=== PATIENT | male | born 1965 | race Caucasian/White ===

== ENCOUNTER 2019-09-02 20:29 | Outpatient (REF) | payer BC, SELFPAY ==
[2019-09-02 21:07] LABS: Abs Immature Grans 0.01 k/cumm (0.0-0.09); Absolute Basophil Count 0.04 k/cumm (0.0-0.2); Absolute Eosinophil Count 0.03 k/cumm (0.0-0.7); Absolute Lymphocyte Count 1.06 k/cumm (1.2-3.4); Absolute Monocyte Count 0.73 k/cumm (0.11-0.7); Absolute Neutrophil Count 5.23 k/cumm (1.2-6.7); Basophils % 0.6; Eosinophils % 0.4; HCT 44.9 % (40.0-50.0); HGB 14.9 g/dL (13.5-17.5); Immature Grans % 0.1 %; Lymphocytes % 14.9; Mean Corp. HGB Concentration 33.2 g/dL (32.0-36.0); Mean Corpuscular Hemoglobin 31.2 pg (27.0-33.0); Mean Corpuscular Volume 93.9 fL (80-95); Monocytes % 10.3; Neutrophils % 73.7; Platelet Count 339 x1000/uL (130-400); RBC 4.78 m/cumm (4.50-6.00); RBC Distribution Width 13.3 % (11.8-14.1)
[2019-09-02 21:28] LABS: Hemoglobin A1C 5.3 % (3.8-5.6)
[2019-09-02 21:38] LABS: ALT 30 U/L (16-63); AST 35 U/L (15-37); Albumin 4.1 g/dL (3.4-5.0); Alkaline Phosphatase 113 U/L (46-116); Anion Gap 8.7 mmol/L (3-11); BUN 14 mg/dL (7-18); Bilirubin, Total 0.4 mg/dL (0.2-1.0); CO2 28.3 mmol/L (21.0-32.0); CREATININE 1.15 mg/dL (0.70-1.30); Calcium 8.9 mg/dL (8.5-10.1); Chloride 101 mmol/L (98-107); Glucose 110 mg/dL (74-106); Potassium 4.9 mmol/L (3.5-5.1); Sodium 138 mmol/L (136-145); TSH 1.21 uIU/mL (0.36-3.74); Total Protein 8.1 g/dL (6.4-8.2); Uric Acid 8.7 mg/dL (3.5-7.2)
[2019-09-02 22:03] LABS: Calculated LDL 78 mg/dL (<100); Cholesterol 188 mg/dL (<200); HDL Cholesterol 104 mg/dL (40-60); Triglyceride 34 mg/dL (<150)
[2019-09-04 08:55] LABS: PSA, Screening 1.1 ng/mL (0.0-3.5)
== END 2019-09-02 20:49 ==
LOC: LBN 20:29
PROVIDERS: PCP Family Medicine; Visit Provider Family Medicine
DX: Z80.42 Family history of malignant neoplasm of prostate (principal); M10.9 Gout, unspecified; R73.01 Impaired fasting glucose; Z00.00 Encounter for general adult medical examination without abnormal findings; Z12.5 Encounter for screening for malignant neoplasm of prostate
CPT/HCPCS: 80053; 80061; 84153; 83036; 84443; 84550; 85025

== ENCOUNTER 2019-09-30 08:09 | Outpatient (CLI) | payer BC, SELFPAY ==
--- NOTE | 2019-09-30 09:00 | ETT_ITS ---
APPROVED REPORT Exam: Exercise Treadmill Patient Location: Out-Patient Room/Bed: Stress Nurse: Veena Skelton RN BMI: 32.63 Baseline Rhythm: Sinus Rhythm Indications: fatigue Medical History Medical History: Fatigue, Obesity , HTN, Hyperlipidemia Cardiac Medications: Valsartan/ Diovan Allergies: No known drug allergies Cardiac Risk Factors: HTN, Hyperlipidemia, FHX of CAD Pretest Chest Pain Characteristics: No chest pain Exercise History: Sedentary Lung Sounds: Clear to auscultation Heart Sounds: Regular Stress Test Details Test: Exercise stress testing was performed using a Antoni protocol. Rest Stress HR Resting HR Supine: 91 bpm Max Heart Rate (APMHR): 165 bpm Resting HR Standin bpm Target HR (85% APMHR): 140 bpm Max HR Achieved: 171 bpm % of APMHR: 103 Recovery HR: 104 bpm HR response to stress: Normal HR response to stress BP Resting BP Supine: 168/86 mmHg Resting BP Standin/84 mmHg Max BP: 194/68 mmHg Recovery BP: 174/74 mmHg BP response to stress: Normal blood pressure response to stress. ECG Resting ECG: Sinus Rhythm Ectopy: RARE PVC'S Stress ECG: Sinus Tachycardia ST Change: Upsloping ST depression Maximum ST Deviation: 1.9 mm Arrhythmia: VPC's Recovery ECG: Clear, SINUS TACHYCARDIA Recovery ST Change: Normal Clinical Reason for Termination: Target HR Achieved Stress Symptoms: General Fatigue Exercise duration: 9 min12 sec Highest Stage Reached: Stage 4: 4.2 mph at 16% grade. Exercise capacity: 10.46 METs Functional Capacity: Average Capacity Stress ECG Conclusion 1. Patient exercised on the Antoni protocol and completed a workload of 10.46 METS limited by fatigue. He achieved greater than 100% of predicted heart rate for age 2. Normal heart rate and blood pressure response to exercise 3. The resting electrocardiogram was normal. At peak exercise there was approximately [address] dep ression noted in the inferior and anterolateral leads, consistent with myocardial ischemia 4. Sporadic PVCs were noted 5. Mora treadmill score is -1, which is medium risk. Expected 95% survival at 5 years
== END 2019-09-30 08:29 ==
PROVIDERS: PCP Family Medicine; Visit Provider Family Medicine
DX: I10 Essential (primary) hypertension (principal); R53.83 Other fatigue; Z82.49 Family history of ischemic heart disease and other diseases of the circulatory system; E66.9 Obesity, unspecified; E78.5 Hyperlipidemia, unspecified
CPT/HCPCS: 93017

== ENCOUNTER 2019-10-08 00:14 | Outpatient (CLI) | payer BC, SELFPAY ==
--- NOTE | 2019-10-08 07:15 | DI.NM_ITS ---
APPROVED REPORT Exam: Exercise Treadmill Patient Location: Out-Patient Room/Bed: Stress Nurse: Teresa Woods RN BMI: 32.77 Baseline Rhythm: Sinus Rhythm Indications: Abnormal EKG. HTN. Medical History Medical History: HTN, Hyperlipidemia Cardiac Medications: Valsartan Allergies: No known drug allergies Cardiac Risk Factors: HTN, Hyperlipidemia Exercise History: Physically active Lung Sounds: Clear to auscultation Heart Sounds: Regular Stress Test Details Test: Exercise stress testing was performed using a Antoni protocol. Rest Isotope: Tc-99m Sestamibi. Dose: 12.5 Date: 10/08/2019 Injection Time: 1040 Stress Isotope: Tc-99m Sestamibi. Dose: 37.6 Date: 10/08/2019 Injection Time: 1245 HR Resting HR Supine: 72 bpm Max Heart Rate (APMHR): 165 bpm Resting HR Standin bpm Target HR (85% APMHR): 140 bpm Max HR Achieved: 152 bpm % of APMHR: 92 Recovery HR: 91 bpm HR response to stress: Normal HR response to stress BP Resting BP Supine: 162/100 mmHg Resting BP Standin/88 mmHg Max BP: 200/76 mmHg Recovery BP: 174/90 mmHg BP response to stress: Normal blood pressure response to stress. ECG Resting ECG: Sinus Rhythm Stress ECG: Sinus Tachycardia ST Change: No significant ST segment changes Recovery ECG: Sinus Rhythm Recovery ST Change: No significant ST segment changes Recovery Arrhythmia: None Clinical Reason for Termination: Fatigue Stress Symptoms: General Fatigue Exercise duration: 09 min03 sec Highest Stage Reached: Stage 3: 3.4 mph at 14% grade. Exercise capacity: 10.21 METs Functional Capacity: Average Capacity Stress ECG Conclusion 1. The patient exercised for 9 minutes (10 METS). 2. There were no symptoms suggestive of ischemia. 3. Patient no evidence of ischemia on the ECG portion of the exam. Stress Test Summary STAGE Time (mins) Speed (mph) Grade (%) HR BP SYMPTOMS METS Supine 72 162/100 Standing 81 150/88 1 3 1.7 10 108 164/82 4.6 2 6 2.5 12 126 174/80 7 3 9 3.4 14 152 194/78 10.2 1 min recovery 126 200/76 3 min recovery 103 188/80 6 min recovery 97 172/94 9 min recovery 91 174/90 MPI Conclusion Patient's ejection fraction was 61% with stress. There were no wall motion abnormalities. There was no evidence of ischemia on the imaging portion of the exam. This represents a normal SPECT stress test. Radiologist Interpretation Radiologist agrees with Delivery Rn's Interpretation. Radiologist Interpretation by: Kaiden Costello MD Interpretation Date/Time: 10/09/2019 11:26:11
== END 2019-10-08 00:34 ==
PROVIDERS: PCP Family Medicine; Visit Provider Family Medicine
DX: I10 Essential (primary) hypertension (principal); R94.31 Abnormal electrocardiogram [ECG] [EKG]; Z82.49 Family history of ischemic heart disease and other diseases of the circulatory system; E78.5 Hyperlipidemia, unspecified
CPT/HCPCS: 78452; 93017

== ENCOUNTER 2019-11-08 03:56 | Outpatient (CLI) | payer BC, SELFPAY ==
[2019-11-10 18:05] LABS: Patient Race White; SARS-CoV-2 RNA Undetected (Undetected); SARS-CoV-2 Specimen Source Nasopharynx
== END 2019-11-08 04:16 ==
PROVIDERS: PCP Family Medicine; Visit Provider Family Medicine
DX: Z11.59 Encounter for screening for other viral diseases (principal)
CPT/HCPCS: U0003

== ENCOUNTER 2021-04-28 01:53 | Outpatient (CLI) | payer BC, SELFPAY ==
[2021-04-28 12:29] LABS: BUN 18 mg/dL (7-18); CREATININE 0.9 mg/dL (0.70-1.30); Calcium 9.3 mg/dL (8.5-10.1); Chloride 101 mmol/L (98-107); Glucose 98 mg/dL (74-106); Potassium 5.3 mmol/L (3.5-5.1); Sodium 138 mmol/L (136-145); Uric Acid 7.2 mg/dL (3.5-7.2)
== END 2021-04-28 01:54 | disposition home or self-care (01) ==
LOC: LBO 01:54
PROVIDERS: PCP Family Medicine; Visit Provider Family Medicine
DX: E79.0 Hyperuricemia without signs of inflammatory arthritis and tophaceous disease (principal); I10 Essential (primary) hypertension
CPT/HCPCS: 36415; 80048; 84550

== ENCOUNTER 2022-03-01 03:57 | Outpatient (CLI) | payer BC, SELFPAY ==
[2022-03-01 15:11] LABS: Anion Gap 7.3 mmol/L (3-11); BUN 9 mg/dL (7-18); CO2 29.7 mmol/L (21.0-32.0); CREATININE 0.7 mg/dL (0.70-1.30); Calcium 8.8 mg/dL (8.5-10.1); Chloride 98 mmol/L (98-107); Glucose 97 mg/dL (74-106); Potassium 4.2 mmol/L (3.5-5.1); Sodium 135 mmol/L (136-145); Uric Acid 6.9 mg/dL (3.5-7.2)
[2022-03-01 15:40] LABS: Calculated LDL 87 mg/dL (<100); Cholesterol 223 mg/dL (<200); HDL Cholesterol 114 mg/dL (40-60); Triglyceride 110 mg/dL (<150)
[2022-03-01 22:53] LABS: PSA, Screening 0.9 ng/mL (<=3.5)
== END 2022-03-01 03:58 | disposition home or self-care (01) ==
LOC: LBO 03:57
PROVIDERS: PCP Family Medicine; Visit Provider Family Medicine
DX: I10 Essential (primary) hypertension (principal); Z12.5 Encounter for screening for malignant neoplasm of prostate; Z13.6 Encounter for screening for cardiovascular disorders; E79.0 Hyperuricemia without signs of inflammatory arthritis and tophaceous disease; M1A.9XX0 Chronic gout, unspecified, without tophus (tophi)
CPT/HCPCS: 36415; 80048; 80061; 84153; 84550

== ENCOUNTER 2022-03-23 06:12 | Day surgery (SDC) | payer BC, SELFPAY ==
--- NOTE | 2022-03-22 20:38 | W.COLOREPORT ---
Date of service: 03/23/22 Time of Service: 08:13 Colonoscopy Report Date of procedure: 03/23/22 Pre-op diagnosis general: Screening colonoscopy; family history--mother Procedure: 1. Colonoscopy 2. polypectomy by jumbo forceps Surgeon: Abdirahman Dacosta Anesthesia Type: MAC Estimated blood loss (mL): 1 Pathology: other (1. mid-rectal polyp @ 15cm) Disposition: same day Indications: Screening for colorectal cancer Prep: Miralax/Dulcolax Retraction Time: >12 min Procedure Description: After informed consent was obtained, the patient was taken to the procedure room and placed in a left decubitus position. Monitors were applied and a time out was done. The patient's name, date of , procedure, allergies to medications, and metal in their body were reviewed. The patient was then sedated. Once sedated and comfortable, a digital rectal exam was done. External exam was normal. Internal exam revealed normal sphincter tone, and no palpable masses or gross blood. The colonoscope was then introduced and advanced to the cecum under direct visualization without difficulty. The ileocecal valve and appendiceal orifice were visualized. The prep was good.? ?The scope was then slowly withdrawn over 12 minutes in a circumferential manner to the rectum. In doing so, one 3mm polyp was encountered in the mid-rectum.? There? was no diverticulosis noted. The mucosa is pink and healthy.? In the rectum, the scope was retroflexed, and no internal hemorrhoids were noted.? The scope was straightened and withdrawn from the anus. The patient tolerated the procedure well, and there were no immediate complications.? The patient was taken to the Day Surgery Unit recovery?area in good condition. Follow up: 5 years, await pathology
--- NOTE | 2022-03-22 20:40 | W.PM.DSUDISC ---
Date of service: 03/23/22 Time of Service: 08:18 Discharge Plan Disposition Patient Disposition: Home Condition: Stable Discharge Details Reason For Visit: Screening for colorectal cancer Attending Provider: Abdirahman Dacosta Primary Care Provider: Teresa Sims Home Meds and New Rx's Prescriptions: No Action bisacodyl [Dulcolax (bisacodyl)] 5 mg tablet,delayed release (DR/EC) 5 mg PO ONCE Qty: 4 0RF Rx Instructions: Take according to provider's instructions for colonoscopy prep. polyethylene glycol 3350 17 gram/dose powder 17 g PO ONCE Qty: 238 0RF Rx Instructions: To be taken as directed by prescriber's office for colonoscopy prep. amlodipine 5 mg tablet 5 mg PO DAILY Qty: 90 3RF indomethacin 25 mg capsule 25 mg PO TID PRN (Reason: gout) Qty: 30 5RF Discharge Instructions Instructions: Colonoscopy (DC), Colorectal Polyps (DC) Activity:: Activity as Tolerated Diet:: As Tolerated
[2022-03-23 06:15] VITALS: BP 133/79; PULSE 71; RESP 18; TEMP 36.7; O2SAT 96
[2022-03-23] MEDS: Lactated Ringers 1,000 ML 80 ML IV (06:41)
--- NOTE | 2022-03-23 06:45 | W.ANESPRE ---
General Info Date of Service Date Performed: 03/23/22 Height: 5 ft 11 in Weight: 101.3 kg Body Mass Index (BMI): 31.1 Surgical Procedure: Operation Date: 03/23/22 07:35 Proposed Procedure Side Surgeon rachelle Dacosta MD Meds Allergies and Home Medications Allergies Allergy/AdvReac Type Severity Reaction Status Date / Time shellfish derived Allergy Severe Verified 03/23/22 06:27 Home Medication Medication Instructions Recorded indomethacin 25 mg capsule 25 mg PO TID PRN gout #30 tab-caps 10/13/21 amlodipine 5 mg tablet 5 mg PO DAILY #90 tabs 02/25/22 bisacodyl 5 mg tablet,delayed 5 mg PO ONCE #4 tabs 03/10/22 release (Dulcolax (bisacodyl)) polyethylene glycol 3350 17 17 g PO ONCE #238 grams 03/10/22 gram/dose oral powder Current Visit Medications: Current Medications Generic Name Dose Route Start Last Admin Trade Name Freq PRN Reason Stop Dose Admin Ringer's Solution 1,000 mls @ 80 mls/hr 03/23/22 06:00 03/23/22 06:41 IV 04/21/22 23:59 80 mls/hr INFUSION WALT Administration IV Miscellaneous Supplies 1 each 03/23/22 06:00 Iv Access IV 04/21/22 23:59 DIRECTED WALT Sodium Chloride 0 ml 03/23/22 06:00 Normal Saline Flush 10 Ml Syr IV 04/21/22 23:59 PRN PRN Sodium Chloride 0 ml 03/23/22 06:00 Normal Saline 10 Ml Vial IJ 04/21/22 23:59 DIRECTED PRN Sterile Water 0 ml 03/23/22 06:00 Water,Injection,Sterile 10 Ml Vial IJ 04/21/22 23:59 DIRECTED PRN PFSH Active Problems Active Problems: Problem Status Onset Code Screening for colon cancer Z12.11 Continuous chewing tobacco dependence F17.220 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 HTN (hypertension) I10 Hyperuricemia E79.0 Medical History Medical History Family history of [place] (myocardial infarction) Family history of prostate cancer in father Gout gets episodes once yearly Tobacco Smoking/Tobacco Use Status: Current every day Tobacco Type: smokeless tobacco Smokeless tobacco user: snuff Passive smoking exposure: Yes Second hand exposure: No Counseling given: provider counseling Alcohol Alcohol Intake: current Alcohol intake frequency: 3 or more drinks per day Alcohol type: beer Substance Use Substance use: Never Substance use type: does not use Vital Signs and Lab Results Vital Signs Most Recent Vital Signs in EMR: Most Recent Vital Signs Temp Pulse Resp BP Pulse Ox 36.7 C 71 18 133/79 96 03/23/22 06:15 03/23/22 06:15 03/23/22 06:15 03/23/22 06:15 03/23/22 06:15 Lab Results Blood Type / Crossmatch: No Data to Display Complete Blood Count: No Data to Display Complete Metabolic Panel: Sodium 135 mmol/L (136-145) L 03/01/22 14:08 Potassium 4.2 mmol/L (3.5-5.1) 03/01/22 14:08 Chloride 98 mmol/L (98-107) 03/01/22 14:08 Carbon Dioxide 29.7 mmol/L (21.0-32.0) 03/01/22 14:08 BUN 9 mg/dL (7-18) 03/01/22 14:08 Creatinine 0.7 mg/dL (0.70-1.30) 03/01/22 14:08 Est GFR (CKD-EPI 2020) 106.80 (mL/min/1.73m2) 03/01/22 14:08 Calcium 8.8 mg/dL (8.5-10.1) 03/01/22 14:08 Glucose 97 mg/dL (74-106) 03/01/22 14:08 Liver Function Panel: No Data to Display Coagulation Panel: No Data to Display Cardiac Panel: No Data to Display Arterial Blood Gas: No Data to Display Venous Blood Gas: No Data to Display Pancreas Panel: No Data to Display Thyroid Panel: No Data to Display Infectious Disease: No Data to Display Blood Cultures: No Data to Display Toxicology Panel: No Data to Display Imaging and Studies Imaging and Studies Study information below may be from another EMR and interpreted by another provider. Please see original notes in EMR for more complete details. EKG Summary: 09/23 Conclusion> Sinus rhythm...normal P axis, V-rate 60- 99 Stress Test Summary: 10/2019 Stress ECG Conclusion 1. The patient exercised for 9 minutes (10 METS). 2. There were no symptoms suggestive of ischemia. 3. Patient no evidence of ischemia on the ECG portion of the exam. Anesthesia Assessment and Plan Anesthesia History Personal History: No History of Anesthesia Complications Family History: No Family History of Anesthesia Complications Exercise Tolerance Exercise Tolerance: Metabolic Equivalents>4 Pertinent Negatives Pertinent Negatives: No Symptoms of GERD Cardiac & Pulmonary Exam Cardiac Exam: Normal S1/S2 Heart Sounds Pulmonary Exam: Clear Bilateral Breath Sounds Implantable Cardiac Device Does patient have a Pacemaker or an ICD?: No Airway Exam Known Difficult Airway: No Mallampati Class: 3 Mouth Opening: Narrow (< 3cm) Thyromental Distance: Greater than 3 cm Neck Range of Motion: Full ROM Neck Circumference: Thick Teeth Condition: Normal Dentition ASA Classification ASA Score: ASA 2 Emergency Case?: No NPO Status NPO Status: NPO Clears >2 hours, Solids >8 hours Anesthesia Plan Resuscitation Status: Full Code Anesthesia Technique: General Anesthesia Airway Planned: Natural Airway Monitors Used: Standard Monitors
[2022-03-23 06:56] VITALS: BMI 31.1
--- NOTE | 2022-03-23 08:05 | BOWEL_PTH ---
PATIENT: Roberto Dela Cruz LOC: [facility] U#:[id number] AGE/SX: 56/M ROOM: RE03/23/[address]: Abdirahman Dacosta : 1965 BED: DIS: 03/23/2022 SPEC #: [id number] RECD: 03/23/22 12:52 STATUS: CLARENCE REQ #: [id number] JOE: 03/23/22 08:[address]: Abdirahman Dacosta DEPT: Surgical Specimen RECD BY: Kendra Zaragoza ENTERED: 03/23/22 12:52 SP TYPE: Bowel OTHR DR: Teresa Sims Tissues: 1 - BIOPSY BOWEL Procedures: GROSS AND MICRO LEVEL 4 Comments: [id number]
[2022-03-23 08:15] VITALS: BP 129/75; PULSE 69; RESP 16; TEMP 36.4; O2SAT 96
[2022-03-23 08:45] VITALS: BP 145/90; PULSE 77; RESP 18; TEMP 36.4; O2SAT 97
--- NOTE | 2022-03-23 16:11 | W.ANESPOSTOP ---
Postoperative Evaluation Date, Time and Location Date Performed: 03/23/22 Time Performed: 08:45 Patient Location: Day Surgery Unit Vital Signs Most Recent Imported Vital Signs: Most Recent Vital Signs Temp Pulse Resp BP Pulse Ox 36.4 C L 77 18 145/90 H 97 03/23/22 08:45 03/23/22 08:45 03/23/22 08:45 03/23/22 08:45 03/23/22 08:45 Pain Score Most Recent Pain Score: Most Recent Pain Score Pain Level 0 03/23/22 08:45 Assessment Mental Status: Awake (Alert & Oriented to Patient Baseline) Airway and Respiratory Function: Patent airway with normal (patient baseline) respiratory exam Cardiovascular Function: Hemodynamically Stable Hydration Status: Adequately Hydrated Nausea & Vomiting: No Nausea or Vomiting Pain: Pt. Denies Any Pain Peripheral Nerve Block: Patient did not receive a nerve block
== END 2022-03-23 09:05 | disposition home or self-care (01) ==
PROVIDERS: PCP Family Medicine; Visit Provider Surgery
PROC: 0DJD8ZZ Inspection of Lower Intestinal Tract, Via Natural or Artificial Opening Endoscopic (ICD-10-PCS; CPT 45378; principal; 2022-03-23 07:30)
DX: Z12.11 Encounter for screening for malignant neoplasm of colon (principal); K62.1 Rectal polyp; Z80.0 Family history of malignant neoplasm of digestive organs; K63.89 Other specified diseases of intestine
CPT/HCPCS: 45380; 88305

== ENCOUNTER 2023-07-21 10:46 | Outpatient (CLI) | payer BC, SELFPAY ==
[2023-07-21 12:41] LABS: ALT 37 U/L (16-63); AST 27 U/L (15-37); Albumin 3.8 g/dL (3.4-5.0); Alkaline Phosphatase 107 U/L (46-116); BUN 8 mg/dL (7-18); Bilirubin, Total 0.4 mg/dL (0.2-1.0); CREATININE 0.7 mg/dL (0.70-1.30); Calcium 8.7 mg/dL (8.5-10.1); Calculated LDL 58 mg/dL (<100); Chloride 100 mmol/L (98-107); Cholesterol 212 mg/dL (<200); Estimated GFR 106.14 (mL/min/1.73m2); Glucose 87 mg/dL (74-106); HDL Cholesterol 140 mg/dL (40-60); Potassium 3.8 mmol/L (3.5-5.1); Sodium 135 mmol/L (136-145); Total Protein 8.4 g/dL (6.4-8.2); Triglyceride 71 mg/dL (<150)
== END 2023-07-21 10:47 | disposition home or self-care (01) ==
LOC: LOS 10:46
PROVIDERS: PCP Family Medicine; Referring Provider Family Medicine; Visit Provider Family Medicine
DX: Z12.5 Encounter for screening for malignant neoplasm of prostate (principal); Z00.00 Encounter for general adult medical examination without abnormal findings; I10 Essential (primary) hypertension; Z13.6 Encounter for screening for cardiovascular disorders
CPT/HCPCS: 36415; 80053; 80061; 84153

== ENCOUNTER 2024-10-02 08:46 | Outpatient (CLI) | payer BC, SELFPAY ==
[2024-10-02 08:56] LABS: Anion Gap 6.3 mmol/L (3-11); BUN 10 mg/dL (7-18); CO2 31.7 mmol/L (21.0-32.0); Calcium 9.3 mg/dL (8.5-10.1); Calculated LDL 75 mg/dL (<100); Chloride 93 mmol/L (98-107); Cholesterol 196 mg/dL (<200); Estimated GFR 105.49 (mL/min/1.73m2); Glucose 122 mg/dL (74-106); HDL Cholesterol 107 mg/dL (>or=40); Potassium 4.5 mmol/L (3.5-5.1); Sodium 131 mmol/L (136-145); Triglyceride 74 mg/dL (<150)
[2024-10-02 19:01] LABS: Hepatitis C Ab w Rflx HCV PCR Negative (Negative)
[2024-10-02 20:06] LABS: HIV-1/2 Ag & Ab Screen Negative (Negative)
== END 2024-10-02 08:47 | disposition home or self-care (01) ==
LOC: LBO 08:46
PROVIDERS: PCP Family Medicine; Visit Provider Family Medicine
DX: R79.89 Other specified abnormal findings of blood chemistry (principal); Z11.59 Encounter for screening for other viral diseases; Z13.6 Encounter for screening for cardiovascular disorders; Z11.4 Encounter for screening for human immunodeficiency virus [HIV]; Z13.1 Encounter for screening for diabetes mellitus; I10 Essential (primary) hypertension
CPT/HCPCS: 36415; 80048; 80061; 83695; 86803; 87389